=== PATIENT | male | born 2000 | race Caucasian/White ===

== ENCOUNTER 2022-11-27 22:53 | Emergency (ER) | payer MEDICAID ==
[~2022-11-27] VITALS: Ht 180 cm; Wt 169.6 kg
[~2022-11-27 22:53] MED LIST: CETI5TAB6; CONCERTA; DIPH25TA82; DOXY-182 PO; NYST15CR3 TP
[2022-11-27 23:00] VITALS: BP 156/102
[2022-11-28] MEDS ORDERED: ONDANSETRON 4 MG (ZOFRAN) ORAL DISSOLVE TAB SL STA (00:01)
--- NOTE | 2022-11-28 00:03 | ED Abdominal Pain ---
General Chief Complaint: Abdominal/GI Problems Stated Complaint: ABDOMINAL PAIN Nursing Triage Note: Pt presents with c/o stabbing abdominal pain that started approx 2 weeks ago. He went to his PCP and was advised to go to the ER if it gets worse. He states tonight he was at work and had increased stabbing abdominal pain Source of Information: Patient Exam Limitations: No Limitations History of Present Illness Date Seen by Provider: Nov 27, 2022 Time Seen by Provider: 23:57 Initial Comments This 22-year-old young man presents to the emergency room with complaints of sharp epigastric pain that came on suddenly within the last couple of hours. He has had lesser symptoms previously. He notes some significant nausea along with it. No fever or diarrhea. Allergies and Home Medications Allergies Coded Allergies: No Known Drug Allergies (Unverified Allergy, Mild, 09/28/09) Patient Home Medication List Home Medication List Reviewed: Yes Cetirizine Hcl (Cetirizine Hcl) 5 Mg Tablet, (Reported) Entered as Reported by: JAN ECHEVERRIA on 09/28/09 0633 Doxycycline Hyclate (Doxycycline Hyclate) 100 Mg Tablet.dr, 100 MG PO BID, (Reported) Entered as Reported by: CAITIE BRUNO on 01/13/132233 Nystatin (Nystatin Cream 15 Gm) 15 Gm Cream.gm., 0 TP QID, (Reported) Entered as Reported by: CAITIE BRUNO on 01/13/132233 [Concerta] , (Reported) Entered as Reported by: SANDRA BAXTER on 09/04/12 1739 Review of Systems Review of Systems Constitutional: no symptoms reported EENTM: No Symptoms Reported Respiratory: No Symptoms Reported Cardiovascular: No Symptoms Reported Gastrointestinal: See HPI Genitourinary: No Symptoms Reported Musculoskeletal: no symptoms reported Skin: no symptoms reported Psychiatric/Neurological: No Symptoms Reported Endocrine: No Symptoms Reported Hematologic/Lymphatic: No Symptoms Reported Past Ydaulqq-Vkbooz-Cfkxbb Hx Patient Social History Tobacco Use?: No Use of E-Cig and/or Vaping dev: No Substance use?: No Alcohol Use?: No Seasonal Allergies Seasonal Allergies: Yes Past Medical History Surgeries: Yes Appendectomy Respiratory: No Cardiac: No Neurological: No Genitourinary: No Gastrointestinal: No Musculoskeletal: No Endocrine: No HEENT: No Cancer: No Psychosocial: Yes ADD/ADHD Integumentary: No Physical Exam Vital Signs Vital Signs - First Documented 11/27/22 23:00 Temp 36.1 Pulse 92 Resp 18 B/P (MAP) 156/102 (120) Capillary Refill : Less Than 3 Seconds Height/Weight/BMI Height: 5'3" Weight: 169lbs. oz. 76.339541av; 52.00 BMI Method:Actual General Appearance: WD/WN, no apparent distress, obese HEENT: normal ENT inspection Neck: normal inspection Respiratory: lungs clear, normal breath sounds, no respiratory distress Cardiovascular: regular rate, rhythm, no murmur Gastrointestinal: soft; No distended; tenderness (Epigastric) Extremities: normal inspection, no pedal edema Neurologic/Psychiatric: alert, normal mood/affect, oriented x 3 Skin: normal color, warm/dry Progress/Results/Core Measures Results/Orders My Orders Orders - KYARA DIAZ MD Ondansetron Oral Dissolve Tab (Zofran (11/28/22 00:01) Lidocaine 2% Viscous 15 Ml (Xylocaine Vi (11/28/22 00:15) Antacid Suspension (Mylanta Suspension (11/28/22 00:15) Pantoprazole Tablet (Protonix Tablet) (11/28/22 00:54) Vital Signs/I&O 11/27/22 23:00 Temp 36.1 Pulse 92 Resp 18 B/P (MAP) 156/102 (120) Blood Pressure Mean: 120 Progress Progress Note : Progress Note Pain improved significantly with GI cocktail and Zofran. See discharge instructions for further discussion. Departure Impression Primary Impression: Epigastric abdominal pain Additional Impression: Nausea Disposition: 01 HOME, SELF-CARE Condition: Improved Departure-Patient Inst. Referrals: [facility] (PCP/Family) Primary Care Physician Copy Copies To 1: [facility]/KYARA GANDARA MD Nov 28, 2022 00:03
[2022-11-28] MEDS ORDERED: ANTACID SUSP 30 ML UDC (MYLANTA) PO ONE (00:15)
[2022-11-28] MEDS ORDERED: LIDOCAINE 2% VISCOUS 15 ML UDC PO ONE (00:15)
[2022-11-28] MEDS ORDERED: PANTOPRAZOLE 40 MG (PROTONIX) TAB PO ONE (00:54)
== END 2022-11-28 01:00 | disposition home or self-care (01) ==
LOC: EDUNIT# 22:53 → ER 22:55
DX: R10.13 Epigastric pain (principal); R11.0 Nausea; Z90.49 Acquired absence of other specified parts of digestive tract
CPT/HCPCS: 99283

== ENCOUNTER 2023-03-30 00:10 | Emergency (ER) | payer MEDICAID ==
[~2023-03-30] VITALS: Ht 180.3 cm; Wt 171.5 kg
[2023-03-30] MEDS ORDERED: TETANUS,DIPTH,PERTUSS P/F (BOOSTRIX) 0.5 ML VIAL IM ONE (00:30)
[2023-03-30] MEDS ORDERED: HYDROcodone/APAP 5 MG/325 MG (LORTAB) TAB PO ONE (01:00)
[2023-03-30] MEDS ORDERED: HYDR-34 PO (01:26)
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
[2023-03-30 01:28] VITALS: BP 127/89
--- NOTE | 2023-03-30 07:28 | Diagnostic Imaging Report ---
INDICATION: Right forearm pain. COMPARISON: None. DISCUSSION: Two views of the right forearm were obtained. No acute fracture, dislocation, or other osseous abnormality identified. No significant degenerative disease. Alignment is anatomic. Soft tissues are unremarkable. IMPRESSION: 1. Negative right forearm. Dictated by: Dictated on workstation # [id number]
--- NOTE | 2023-03-30 07:30 | Diagnostic Imaging Report ---
INDICATION: Right wrist pain. COMPARISON: None. DISCUSSION: Three views of the right wrist were obtained. No acute fracture, dislocation, or other osseous abnormality identified. No significant degenerative disease. Alignment is anatomic. Soft tissues are unremarkable. IMPRESSION: 1. Negative right wrist. Dictated by: Dictated on workstation # [id number]
--- NOTE | 2023-03-30 07:32 | Diagnostic Imaging Report ---
INDICATION: Right arm pain. COMPARISON: None. DISCUSSION: Three views of the right shoulder were obtained. There is an acute mildly displaced fracture involving the distal shaft of the right humerus. The shoulder joint itself is maintained. Soft tissue swelling noted. No dislocation. IMPRESSION: 1. Mildly displaced fracture of the distal right humeral shaft. Dictated by: Dictated on workstation # [id number]
--- NOTE | 2023-03-30 07:32 | Diagnostic Imaging Report ---
INDICATION: Upper right arm pain. COMPARISON: None. DISCUSSION: Two views of the right humerus were obtained. Mildly displaced transverse fracture involving the distal shaft of the right humerus. No dislocation. Soft tissue swelling noted. IMPRESSION: 1. Mildly displaced transverse fracture involving the distal shaft of the right humerus. Dictated by: Dictated on workstation # [id number]
== END 2023-03-30 01:35 | disposition home or self-care (01) ==
LOC: EDUNIT# 00:10 → ER 00:11
DX: S42.301A Unspecified fracture of shaft of humerus, right arm, initial encounter for closed fracture (principal); E66.01 Morbid (severe) obesity due to excess calories; Z68.43 Body mass index [BMI] 50.0-59.9, adult; V47.6XXA Car passenger injured in collision with fixed or stationary object in traffic accident, initial encounter; Y92.481 Parking lot as the place of occurrence of the external cause
CPT/HCPCS: 29105; 73030; 73060; 73090; 73110

== ENCOUNTER 2023-03-30 14:11 | Emergency (ER) | payer MEDICAID ==
[~2023-03-30] VITALS: Ht 180 cm; Wt 175.5 kg
[~2023-03-30 14:11] MED LIST changes: +HYDR-34 PO
[2023-03-30] MEDS ORDERED: fentaNYL INJ 100 MCG/2 ML AMP IM ONE (15:15)
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
[2023-03-30 16:45] VITALS: BP 142/91
== END 2023-03-30 16:45 | disposition home or self-care (01) ==
LOC: EDUNIT# 14:11 → ER 14:14
DX: S42.301A Unspecified fracture of shaft of humerus, right arm, initial encounter for closed fracture (principal); E66.01 Morbid (severe) obesity due to excess calories; Z68.43 Body mass index [BMI] 50.0-59.9, adult; V89.2XXA Person injured in unspecified motor-vehicle accident, traffic, initial encounter; Y92.410 Unspecified street and highway as the place of occurrence of the external cause
CPT/HCPCS: 29105